=== PATIENT | male | born 1970 | race Caucasian/White ===

== ENCOUNTER → 2019-07-12 14:09 | Outpatient (CLI) | payer MEDICAID, SELFPAY ==
--- NOTE | 2019-07-12 14:13 | MR_ITS ---
PROCEDURE: MR ANKLE RT WO CON CLINICAL INDICATION: RIGHT ANKLE PAIN Right ankle pain, recent injury with pain. COMPARISON: No exams were available for comparison TECHNIQUE: Routine multiplanar multi echo sequences are performed without gadolinium enhancement. FINDINGS: The tibiofibular and talofibular ligaments appear intact as does the deltoid ligament. No obvious fracture or bone bruise. The Achilles tendon has an unremarkable appearance. There is slight increased T2 signal involving the peroneal longus tendon at the retro malleolar groove region which could be due to some underlying tendinopathy/tendinosis or even partial intrasubstance tear. The posterior tibialis, flexor hallucis longus, and flexor digitorum longus as well as the extensor tendons have an unremarkable appearance. Subtalar joint is unremarkable. IMPRESSION: 1. Subtle increased T2 signal within the central aspect of the peroneal longus tendon at the retro malleolar groove region which could represent an area of tendinopathy/tendinosis versus a small intrasubstance tear. 2. Otherwise negative MRI of the right ankle Dictated by: Bartolo Stark MD 07/13/2019 13:16 Electronically signed by Bartolo Stark MD in [place] 07/14/2019 08:26
== END ==
PROVIDERS: Visit Provider Orthopaedic Surgery Adult Reconstructive Orthopaedic Surgery
DX: M25.571 Pain in right ankle and joints of right foot (principal)
CPT/HCPCS: 73721